=== PATIENT | female | born 1960 | race Caucasian/White ===

== ENCOUNTER → 2021-06-01 | Outpatient (REF) ==
--- NOTE | 2021-06-01 14:40 | REP ---
INDICATION: ARTHRITIS COMPARISON: None. TECHNIQUE: AP, lateral, coned-down views of the lumbar spine. FINDINGS: Three views of the lumbosacral spine demonstrate satisfactory alignment and lordosis without acute fracture / compression injury or subluxation. Degenerative changes including endplate sclerosis, marginal spurring/osteophyte formation and disc space narrowing most notably at L3-4 and L2-3. IMPRESSION: 1. No acute fracture / compression injury or subluxation. 2. Degenerative changes at L2-3 and L3-4. <Electronically signed by Primitivo Saul > 06/01/21 [id number]
--- NOTE | 2021-06-01 14:55 | REP ---
INDICATION: ARTHRITIS. COMPARISON: None. TECHNIQUE: Three views of the left shoulder were performed. FINDINGS: The acromioclavicular and glenohumeral relationships are within normal limits. There is no acute fracture or destructive osseous lesion. IMPRESSION: Within normal limits <Electronically signed by Pradeep Massey > 06/01/21 [id number]
== END ==
LOC: M PLAIMG 13:01
PROVIDERS: ATTEND Internal Medicine
DX: M19.90 Unspecified osteoarthritis, unspecified site (principal)